=== PATIENT | female | born 1995 | race Caucasian/White ===

== ENCOUNTER 2024-09-09 15:19 | Emergency (ER) | payer MEDICAID, SELFPAY ==
[2024-09-09 15:20] VITALS: BMI 21.6
[2024-09-09 16:06] VITALS: BP 137/91; PULSE 90; RESP 18; TEMP 37.1; O2SAT 97
--- NOTE | 2024-09-09 16:15 | EKG_ITS ---
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
--- NOTE | 2024-09-09 16:16 | PD.EDADULT ---
ED General RME/HPI General Chief complaint: Arrhythmia/Palpitations Stated complaint: FEEL MY HEART IS MURMURING CHEST PAIN Time Seen by Provider: 09/09/24 16:15 Arrival date/time: 09/09/24 15:19 CC: Heart issues , HPI onset today, when asked after getting a list of heart related issues such as chest pain shortness of breath difficulty the patient says a little bit of all of these. The patient smells strongly of alcohol has slurred speech. Patient admits to vaping denies any street drugs. The patient is awake alert oriented x 3. Related Data Previous Rx's ?Medication ?Instructions ?Recorded ferrous sulfate 325 mg (65 mg 325 mg PO QDAY anemia #14 tabs 05/22/24 iron) tablet Allergies Allergy/AdvReac Type Severity Reaction Status Date / Time Sulfa (Sulfonamide Allergy Verified 09/09/24 15:22 Antibiotics) Review of Systems Review of Systems Narrative Review of Systems: GEN: No fever, no chills, no weight loss EYES: No discharge, no visual changes, no pain HEENT: No ear pain, no congestion, no sore throat PULM: No shortness of breath, no cough, no congestion CV: + chest pain, no dyspnea on exertion, no palpitations GI: No nausea, no vomiting, no diarrhea, no pain, no constipation : No frequency, no urgency, no dysuria MUSC/SKEL: No joint pain, no back pain SKIN: No rash PSYCH: No hallucinations, no depression HEME/LYMPH: No easy bleeding or bruising tendencies NEURO: No weakness, no headache Past Medical History Past Medical History CARDIAC: Negative Congestive Heart Failure RESPIRATORY: Negative Chronic Obstructive Pulmonary Disease (COPD) GENITOURINARY: Negative Renal Disease ENDOCRINE: Negative Diabetes Mellitus Type 1 or Diabetes Mellitus Type 2 Social History SMOKING STATUS: Current every day smoker ED Exam Narrative Physical exam: [General: Appears not in any acute distress Head normocephalic HEENT: Within acceptable limits Neck is supple nontender Chest equal chest rise nontender to palpation Respiratory: Clear to auscultation no wheezes crackles or rubs CV: Rate rhythm is regular no murmurs rubs or clicks Abdomen is flat, soft nontender no masses positive bowel sounds all 4 quadrants Back: No CVA tenderness no spinous process tenderness from cervical spine thoracic and lumbar spine Skin: Intact no petechiae rash induration ulceration or crepitus Extremities: Moving all extremity against resistance cap refill less than 2 seconds neurosensory intact Neuro: Awake alert oriented x3 Glascow coma 15 no focal deficits], slurred speech. Course Quality Measures none Orders Category Date Time Status EKG (ED ONLY) *Do not use* NOW Care 09/09/24 16:16 Completed EKG (ED Only) Stat Exams 09/09/24 16:15 Ordered Vital Signs Vital signs: Vital Signs Temperature 98.7 F 09/09/24 16:06 Pulse Rate 90 09/09/24 16:06 Respiratory Rate 18 09/09/24 16:06 Blood Pressure 137/91 H 09/09/24 16:06 Pulse Oximetry (%) 97 09/09/24 16:06 Oxygen Delivery Method Room Air 09/09/24 16:06 MDM Patient data External records reviewed:: [facility] previous records Clinical information provided by:: patient Social determinants that could affect healthcare access:: none Patient has the following chronic illnesses:: Pediatric heart issues How is presenting disease/condition affected by chronic disease/condition?: uneffected by Evaluation data The following diagnostics were reviewed and interpreted by me:: EKG tracing(s) Lab and/or radiology exams considered but not ordered:: EKG performed at 1623 shows ventricular rate of 62 W[place] interval 157 QRS of 108 QTc of 467 the sinus rhythm Interpretation Summary: Patient is highly intoxicated there are no cardiac issues that I can see EKG is grossly unremarkable. Medications Medications considered but not ordered:: None Medication administrations:: None Consultations Consultation(s) initiated? (list below): No Diagnosis Differential Diagnosis ED Complaint MDM: Pneumonia CHF chest pain Most likely diagnosis given after review of the tests above:: Alcohol intoxication Admission Indicated Admission indicated?: not indicated Explain why admission is indicated or not indicated:: Stable for outpatient follow-up Admission Request Was there a request for admission?: No Disposition Plan Disposition Plan: Discharge Discharge Attestation Discharge Attestation: The patient and all family members were given an opportunity to ask questions and understood the discharge instructions. Discharge instructions specifically effects, indications for sooner follow up or return to the emergency department, and the expected course of current diagnosis. Patient condition: Stable Medical Decision Making Differential Diagnosis Differential Diagnosis: Pneumonia CHF chest pain Discharge Plan Plan Patient Disposition: HOME (Self Care) Patient condition on transfer: Stable Prescriptions/Referrals Prescriptions/Med Rec: No Action ferrous sulfate 325 mg (65 mg iron) tablet 325 mg PO QDAY Qty: 14 0RF Problem List Clinical Impression: Anxiety, Alcohol intoxication Patient/Caregiver Discharge Instructions Other Activity Instructions:: Once you stop drinking alcohol follow-up with your primary care provider Education Materials: ED Alcohol Intoxication, ED Anxiety Reaction Print Language: Welsh Stand Alone Forms: Mariajose Award Info., Patient Portal Info Letter PA/WEB MARKETING STRATEGIST Supervising Physician PA/WEB MARKETING STRATEGIST Supervising Physician: Danny Lo ENP
== END 2024-09-09 16:33 | disposition home or self-care (01) ==
LOC: SERX 16:34
PROVIDERS: Emergency Provider Emergency Medicine
DX: F41.9 Anxiety disorder, unspecified (principal); F10.129 Alcohol abuse with intoxication, unspecified; I49.1 Atrial premature depolarization
CPT/HCPCS: 93005; 99283